=== PATIENT | female | born 1965 ===

== ENCOUNTER → 2018-08-06 22:33 | Outpatient (REF) | payer OTHER, SELFPAY | LOC: LAB 22:33 | PROVIDERS: Visit Provider Naturopath | DX: Z01.419 Encounter for gynecological examination (general) (routine) without abnormal findings (principal); N93.8 Other specified abnormal uterine and vaginal bleeding; Z12.4 Encounter for screening for malignant neoplasm of cervix; Z11.3 Encounter for screening for infections with a predominantly sexual mode of transmission; M25.551 Pain in right hip | CPT/HCPCS: 87624; 88142 ==